=== PATIENT | female | born 1980 | race Caucasian/White ===

== ENCOUNTER 2017-12-14 13:45 | Emergency (ER) | payer SELFPAY ==
[2017-12-14] MEDS ORDERED: IPRATROPIUM/ALBUTEROL 0.5-2.5 MG/3 ML AMPUL NEB ONE (15:01)
[2017-12-14] MEDS ORDERED: PREDNISONE 20 MG TABLET PO ONE (15:01)
--- NOTE | 2017-12-14 15:03 | ER Document Report ---
HPI - HPI Patient complains to provider of: Cough Onset: Other - 9 days Onset/Duration: Persistent Quality of pain: Achy Pain Level: 4 Context: Patient presents complaining of cough for the past 9 days. Patient does report low-grade fever at home. Cough has been nonproductive but she will cough until she vomits. Patient reports a heaviness in the chest but only has this discomfort when she is coughing. Patient presently denies any chest discomfort. No recent travel, bedrest remobilization. Associated Symptoms: Chest pain - With coughing, Nonproductive cough, Vomiting. denies: Fever, Headache Exacerbated by: Coughing Relieved by: Remaining still Similar symptoms previously: No Recently seen / treated by doctor: No - ROS ROS below otherwise negative: Yes Systems Reviewed and Negative: Yes All other systems reviewed and negative - CONSTITUTIONAL Constitutional: DENIES: Fever - EENT EENT: DENIES: Sore Throat - CARDIOVASCULAR Cardiovascular: REPORTS: Chest pain - With coughing - RESPIRATORY Respiratory: REPORTS: Coughing. 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 IN LAST 30 DAYS: No - HEENT HEENT: Atraumatic, Normal ENT Exam, Normocephalic - NECK Neck: Normal Inspection, Supple. negative: Lymphadenopathy-Left, Lymphadenopathy-Right - RESPIRATORY Respiratory: No Respiratory Distress, Wheezing. negative: Chest Non-Tender - Anterior chest wall tenderness with coughing only - CARDIOVASCULAR Cardiovascular: Regular Rate, Regular Rhythm, No Murmur - BACK Back: Normal Inspection. negative: CVA Tenderness-Right, CVA Tenderness-Left - MUSCULOSKELETAL/EXTREMETIES Musculoskeletal/Extremeties: MAEW - NEURO Level of Consciousness: Awake, Alert, Appropriate Motor/Sensory: No Motor Deficit, No Sensory Deficit - DERM Integumentary: Warm, Dry, No Rash Course - Re-evaluation Re-evalutation: 12/14/17 15:56 Respirations unlabored, patient nontoxic in appearance. EKG reviewed, chest x- ray without any findings worrisome for pneumonia. Patient with increased air movement bilaterally and decreased wheezing. Patient encouraged to continue to refrain from smoking. The patient has atypical chest pain as the patient's chest pain is not suggestive of pulmonary embolus, cardiac ischemia, aortic dissection, or other serious etiology. Given the extremely low risk of these diagnoses for the test in evaluation for these possibilities does not appear to be indicated at this time. Patient has been instructed to return if the symptoms worsen or change in any way. - Vital Signs Vital signs: Temp Pulse Resp BP Pulse Ox 99.1 F 96 18 116/75 96 12/14/17 14:13 12/14/17 14:13 12/14/17 14:13 12/14/17 14:13 12/14/17 14:13 - Diagnostic Test Radiology reviewed: Reports reviewed - EKG Interpretation by Me EKG shows normal: Sinus rhythm Rate: Normal Discharge - Discharge Clinical Impression: Bronchitis, Wheezing Condition: Stable Disposition: HOME, SELF-CARE Instructions: Bronchitis With Bronchospasm (Wheezing) (OM), Inhaled Bronchodilators (OM), Steroid Medication Additional Instructions: Return immediately for any new or worsening symptoms Followup with your primary care provider, call tomorrow to make a followup appointment Prescriptions: Albuterol Sulfate [Ventolin Hfa] 2 puff IH Q4HP PRN #17 gm PRN Reason: Prednisone [Deltasone 20 mg Tablet] 3 tab PO DAILY 4 Days tablet Forms: Smoking Cessation Education, Return to Work Referrals: [facility] [Provider Group] - Follow up as needed [facility] [Provider Group] - Follow up as needed
--- NOTE | 2017-12-14 15:40 | RADIOLOGY REPORT (SQ) ---
EXAM DESCRIPTION: CHEST 2 VIEWS COMPLETED DATE/TIME: 12/14/2017 3:19 pm REASON FOR STUDY: cough COMPARISON: None. EXAM PARAMETERS: NUMBER OF VIEWS: two views TECHNIQUE: Digital Frontal and Lateral radiographic views of the chest acquired. RADIATION DOSE: NA LIMITATIONS: none FINDINGS: LUNGS AND PLEURA: No opacities, masses or pneumothorax. No pleural effusion. MEDIASTINUM AND HILAR STRUCTURES: No masses or contour abnormalities. HEART AND VASCULAR STRUCTURES: Heart normal size. No evidence for failure. BONES: No acute findings. HARDWARE: None in the chest. OTHER: No other significant finding. IMPRESSION: NO ACUTE RADIOGRAPHIC FINDING IN THE CHEST. TECHNICAL DOCUMENTATION: JOB ID: [id number] [employer]- All Rights Reserved Reading location - IP/workstation name: [email or web address]
[2017-12-14 16:39] VITALS: BP 107/66
--- NOTE | 2017-12-15 07:53 | EKG REPORT ---
SEVERITY:- NORMAL ECG - SINUS RHYTHM : Confirmed by: Penelope Cunha MD 15-Dec-2017 07:52:43
== END 2017-12-14 16:38 | disposition home or self-care (01) ==
LOC: ER 13:45
DX: J40 Bronchitis, not specified as acute or chronic (principal); R06.2 Wheezing; R05 Cough; R50.9 Fever, unspecified; R11.10 Vomiting, unspecified; R07.9 Chest pain, unspecified; F17.200 Nicotine dependence, unspecified, uncomplicated
CPT/HCPCS: 93005; 94640; 99284; 71046; 93010; J7512; J7620

== ENCOUNTER 2018-06-14 11:26 | Emergency (ER) | payer OTHER ==
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
--- NOTE | 2018-06-14 15:03 | RADIOLOGY REPORT (SQ) ---
EXAM DESCRIPTION: CT CERVICAL SPINE WITHOUT COMPLETED DATE/TIME: 06/14/2018 2:41 pm REASON FOR STUDY: pain injury numbness to 1 and 2 finger right arm pain and numbness COMPARISON: None. TECHNIQUE: Axial images acquired through the cervical spine without intravenous contrast. Images re viewed with lung, soft tissue and bone windows. Reconstructed coronal and sagittal MPR images review ed. Images stored on PACS. All CT scanners at this facility use dose modulation, iterative reconstruction, and/or weight based d osing when appropriate to reduce radiation dose to as low as reasonably achievable (ALARA). [facility]: Dose Right [facility]: CareDose [facility]: Dose Right [facility]: Teradose 4D [facility]: Infogram RADIATION DOSE: CT Rad equipment meets quality standard of care and radiation dose reduction techniq ues were employed. CTDIvol: 18.2 mGy. DLP: 341 mGy-cm. mGy. LIMITATIONS: None. FINDINGS: ALIGNMENT: Anatomic. MINERALIZATION: Normal. VERTEBRAL BODIES: No fractures or dislocation. DISCS: Old discectomy with fusion at C6-7, with incorporated bone graft material and anterior fixatio n plate. There is minimal right paracentral bony spurring without significant central or foraminal s tenosis. FACETS, LATERAL MASSES, POSTERIOR ELEMENTS: No fractures. No dislocation. No acute findings. HARDWARE: None in the spine. VISUALIZED RIBS: No fractures. LUNG APICES AND SOFT TISSUES: No significant or acute findings. OTHER: No other significant finding. IMPRESSION: Old postsurgical changes at C6-7. No significant central or foraminal encroachment at t his level. No acute fracture or malalignment. TECHNICAL DOCUMENTATION: JOB ID: [id number] Quality ID # [id number]: Final reports with documentation of one or more dose reduction techniques (e.g., Au tomated exposure control, adjustment of the mA and/or kV according to patient size, use of iterative reconstruction technique) 2010 [employer]- All Rights Reserved Reading location - IP/workstation name: [email or web address]
--- NOTE | 2018-06-14 15:04 | RADIOLOGY REPORT (SQ) ---
EXAM DESCRIPTION: SHOULDER RIGHT 2 OR MORE VIEWS COMPLETED DATE/TIME: 06/14/2018 2:50 pm REASON FOR STUDY: pain injury numbness to 1 and 2 finger injury pain, right shoulder pain COMPARISON: None. NUMBER OF VIEWS: Three views. TECHNIQUE: Internal rotation, external rotation, and Y view images acquired of the right shoulder. LIMITATIONS: None. FINDINGS: MINERALIZATION: Normal. BONES: No acute fracture or dislocation. No worrisome bone lesions. JOINTS: No glenohumeral dislocation. No widening at the acromioclavicular joint VISUALIZED LUNGS AND RIBS: No pneumothorax. No rib fracture. SOFT TISSUES: No radiopaque foreign body. OTHER: No other significant finding. IMPRESSION: NEGATIVE STUDY OF THE RIGHT SHOULDER. NO RADIOGRAPHIC EVIDENCE OF ACUTE INJURY. TECHNICAL DOCUMENTATION: JOB ID: [id number] [employer]- All Rights Reserved Reading location - IP/workstation name: [email or web address]
[2018-06-14] MEDS ORDERED: LORAZEPAM 0.5 MG TABLET PO ONE (16:57)
--- NOTE | 2018-06-14 19:48 | RADIOLOGY REPORT (SQ) ---
EXAM DESCRIPTION: MRI CERVICAL SPINE WITHOUT COMPLETED DATE/TIME: 06/14/2018 7:31 pm REASON FOR STUDY: pain cervical spine earlier now weakness right COMPARISON: CT 06/14/2018 TECHNIQUE: Sagittal and Axial imaging includes T1, T2, STIR and gradient echo sequences. LIMITATIONS: None. FINDINGS: ALIGNMENT: Normal. VERTEBRAE: Intact. BONE MARROW: Normal. No marrow replacement or reactive changes. DISCS: Normal. No significant abnormal signal or loss of height. HARDWARE: There is anterior hardware at C5-6 with screws into the vertebral bodies. CORD AND BASE OF BRAIN: Normal in size and signal intensity. SOFT TISSUES: No soft tissue masses. C1-C2: No significant spinal stenosis. C2-C3: No significant spinal stenosis or exit foraminal stenosis. C3-C4: No significant spinal stenosis or exit foraminal stenosis. C4-C5: No significant spinal stenosis or exit foraminal stenosis. C5-C6: No significant spinal stenosis or exit foraminal stenosis. C6-C7: Right paracentral disc/ osteophyte complex that mildly deforms the spinal cord on the right. See image 108 series 7. There is no foraminal stenosis. C7-T1: No significant spinal stenosis or exit foraminal stenosis. UPPER THORACIC: Incompletely imaged. No significant spinal stenosis or exit foraminal stenosis. OTHER: No other significant finding. IMPRESSION: Right paracentral disc/ osteophyte complex at C6-7 that slightly deforms the spinal cord . TECHNICAL DOCUMENTATION: JOB ID: [id number] [employer]- All Rights Reserved Reading location - IP/workstation name: [email or web address]
[2018-06-14 21:09] VITALS: BP 116/82
== END 2018-06-14 21:09 | disposition home or self-care (01) ==
LOC: ER 11:26
DX: S16.1XXA Strain of muscle, fascia and tendon at neck level, initial encounter (principal); X50.9XXA Other and unspecified overexertion or strenuous movements or postures, initial encounter; Y93.F2 Activity, caregiving, lifting; Y92.129 Unspecified place in nursing home as the place of occurrence of the external cause; Y99.0 Civilian activity done for income or pay; F17.210 Nicotine dependence, cigarettes, uncomplicated
CPT/HCPCS: 72125; 72141; 99284

== ENCOUNTER → 2019-04-20 | Outpatient (CLI) | payer OTHER ==
--- NOTE | 2019-04-20 08:47 | WOMENS IMAGING REPORT ---
EXAM DESCRIPTION: BILAT SCREENING MAMMO W/CAD COMPLETED DATE/TIME: 04/20/2019 8:26 am REASON FOR STUDY: Z12.31 SCREENING MAMMO Z12.31 ENCNTR SCREEN MAMMOGRAM FOR MALIGNANT NEOPLASM OF B RE COMPARISON: None. EXAM PARAMETERS: Standard craniocaudal and mediolateral oblique views of each breast recorded using digital acquisition. Read with the assistance of CAD. .[facility] - [employer] Version 9.2 LIMITATIONS: None. FINDINGS: No suspicious masses, suspicious calcifications or architectural distortion. No areas of c oncern. IMPRESSION: Negative MAMMOGRAM. BIRADS 1 BREAST DENSITY: c. The breasts are heterogeneously dense, which may obscure small masses. BIRAD: ASSESSMENT: 1 NEGATIVE RECOMMENDATION: ROUTINE SCREENING COMMENT: The patient has been notified of the results by letter per MQSA requirements. Additional no tification policies are in place for contacting patient with suspicious or incomplete findings. Quality ID #225: The [employer] recommends an annual screening mammogram for women aged 40 years or over. This facility utilizes a reminder system to ensure that all patients receive reminder letters, and/or direct phone calls for appointments. This includes reminders for routine scr eening mammograms, diagnostic mammograms, or other Breast Imaging Interventions when appropriate. Th is patient will be placed in the appropriate reminder system. TECHNICAL DOCUMENTATION: FINDING NUMBER: (1) ASSESSMENT: (1) JOB ID: [id number] [employer]- All Rights Reserved Reading location - IP/workstation name: [email or web address]
== END ==
LOC: WI 07:35
PROVIDERS: ATTEND Family Medicine
DX: Z12.31 Encounter for screening mammogram for malignant neoplasm of breast (principal)
CPT/HCPCS: 77067

== ENCOUNTER 2019-06-26 11:53 | Emergency (ER) | payer OTHER ==
--- NOTE | 2019-06-26 12:12 | ER Document Report ---
ED Medical Screen (RME) - General Chief Complaint: Numbness Stated Complaint: LEFT SIDE NUMBNESS/WEAKNESS/CHILLS Time Seen by Provider: 06/26/19 12:08 Primary Care Provider: MELISSA CASTILLO DO [Primary Care Provider] - Follow up as needed Mode of Arrival: Ambulatory Information source: Patient Notes: 39-year-old female presented to ED for complaint of numbness to both feet with cold tingling sensation both arms both hands and upper left side. 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 Patient is alert oriented respirations regular and unlabored speaking in full sentences. She is able to walk with a even steady gait. States she is not having any pain at this time. I have greeted and performed a rapid initial assessment of this patient. A comprehensive ED assessment and evaluation of the patient, analysis of test results and completion of medical decision making process will be conducted by an additional ED providers. TRAVEL OUTSIDE OF THE [place] IN LAST 30 DAYS: No - Related Data Allergies/Adverse Reactions: No Known Allergies Allergy (Verified 06/14/18 11:27) Past Medical History - General Information source: Patient - Social History Cigarette use (# per day): Yes - 1/2 to 3/4 pack/day Frequency of alcohol use: None Drug Abuse: None Lives with: Friend - Medical History Medical History: Negative - Past Medical History Cardiac Medical History: Reports: None Pulmonary Medical History: Reports: None EENT Medical History: Reports: None Neurological Medical History: Reports: None Endocrine Medical History: Reports: None Renal/ Medical History: Reports: None Malignancy Medical History: Reports: None GI Medical History: Reports: None Musculoskeltal Medical History: Reports Hx Musculoskeletal Trauma, Reports 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 Psychiatric Medical History: Reports: Hx Attention Deficit Hyperactivity Disorder, Other - Insomnia Traumatic Medical History: Reports: Hx Spine Fracture - c 6 c7 Infectious Medical History: Reports: None Past Surgical History: Reports: Hx Gynecologic Surgery - uterine ablation, Hx Orthopedic Surgery - Corpectomy metal cage and screws to C6-7, Hx Tubal Ligation - Immunizations Immunizations up to date: Yes Physical Exam - Vital signs Vitals: Temp Pulse Resp BP Pulse Ox 97.8 F 88 16 110/88 H 98 06/26/19 11:57 06/26/19 11:57 06/26/19 11:57 06/26/19 11:57 06/26/19 11:57 Course - Vital Signs Vital signs: Temp Pulse Resp BP Pulse Ox 97.8 F 88 16 110/88 H 98 06/26/19 11:57 06/26/19 11:57 06/26/19 11:57 06/26/19 11:57 06/26/19 11:57 Doctor's Discharge - Discharge Referrals: MELISSA CASTILLO DO [Primary Care Provider] - Follow up as needed
--- NOTE | 2019-06-26 12:36 | RADIOLOGY REPORT (SQ) ---
EXAM DESCRIPTION: CERV SP 4 OR 5 VIEWS COMPLETED DATE/TIME: 06/26/2019 12:28 pm REASON FOR STUDY: numbness hands and feet COMPARISON: None. NUMBER OF VIEWS: Five views. TECHNIQUE: AP, lateral, obliques and odontoid radiographic images acquired of the cervical spine. LIMITATIONS: None. FINDINGS: MINERALIZATION: Normal. ALIGNMENT: Anatomic. VERTEBRAE: Vertebral bodies of normal height. DISCS: There is a disc implant at C6-7. Marginal osteophytes is seen at C5-6. FORAMINA: No osteophytes or foraminal narrowing. LATERAL AND POSTERIOR ELEMENTS: Facets, lateral masses and spinous processes without significant find ings. HARDWARE: There is anterior hardware at C6-7 with screw into each vertebral body and with a disc impl ant. SOFT TISSUES: No masses or calcifications. Lung apices clear. OTHER: No other significant finding. IMPRESSION: Surgical changes. Mild spondylosis. No acute finding. TECHNICAL DOCUMENTATION: JOB ID: [id number] [employer]- All Rights Reserved Reading location - IP/workstation name: [email or web address]
--- NOTE | 2019-06-26 15:12 | ER Document Report ---
ED Neuro Symptoms/Deficit - General Chief Complaint: Numbness Stated Complaint: LEFT SIDE NUMBNESS/WEAKNESS/CHILLS Time Seen by Provider: 06/26/19 12:08 Primary Care Provider: MELISSA CASTILLO DO [Primary Care Provider] - Follow up as needed Mode of Arrival: Ambulatory Notes: CHIEF COMPLAINT: Numbness in extremities HPI: 39-year-old female who is otherwise healthy presenting to the emergency department complaining of progressive numbness and tingling in both the upper and lower extremities over the last 3 to 4 days. States it started in the left foot and left hand then became bilateral. Has not had fever or recent illness. Denies headache. Denies visual change. Denies neck pain. Denies chest pain shortness of breath. Denies abdominal pain. Denies incontinence of urine or bowel. Patient states that she follows with Dr. Christie in [place] because of a brachial plexus injury she had last year but symptoms of that had resolved completely. Patient states she is not dropping items when she is holding things. She states that movement of the head and neck do not change the character of her symptoms. She has not called her neurologist to discuss these new symptoms. ROS: See HPI - all other systems were reviewed and are otherwise negative Constitutional: no fever Eyes: no drainage, no blurred vision ENT: no runny nose, no sore throat Cardiovascular: no chest pain Resp: no SOB, no cough GI: no vomiting, no diarrhea : no dysuria Integumentary: no rash Allergy: no hives Musculoskeletal: no extremity pain or swelling Neurological: + numbness/tingling, + weakness MEDICATIONS: I agree with the patient medications as charted by the RN. ALLERGIES: I agree with the allergies as charted by the RN. PAST MEDICAL HISTORY/PAST SURGICAL HISTORY: Reviewed and agree as charted by RN. SOCIAL HISTORY: Reviewed and agree as charted by RN. FAMILY HISTORY: No significant familial comorbid conditions directly related to patient complaint EXAM: Reviewed vital signs as charted by RN. CONSTITUTIONAL: Alert and oriented and responds appropriately to questions. Well-appearing; well-nourished HEAD: Normocephalic; atraumatic EYES: PERRL; Conjunctivae clear, sclerae non-icteric ENT: normal nose; no rhinorrhea; moist mucous membranes; pharynx without lesions noted NECK: Supple without meningismus; non-tender; no cervical lymphadenopathy, no masses CARD: RRR; no murmurs, no clicks, no rubs, no gallops; symmetric distal pulses RESP: Normal chest excursion without splinting or tachypnea; breath sounds clear and equal bilaterally; no wheezes, no rhonchi, no rales, pulse oximetry ABD/GI: Normal bowel sounds; non-distended; soft, non-tender, no rebound, no guarding; no palpable organomegaly or masses. BACK: The back appears normal and is non-tender to palpation, there is no CVA tenderness EXT: Normal ROM in all joints; non-tender to palpation; no cyanosis, no effusions, no edema SKIN: Normal color for age and race; warm; dry; good turgor; no acute lesions noted NEURO: Moves all extremities equally; Motor and sensory function intact. Face symmetric. Tongue protrudes midline. Extraocular motions intact. Pupils are 3 mm and equally reactive. Normal speech. 5 out of 5 strength in both the distal and proximal upper and lower extremities bilaterally. Sensation is grossly intact throughout except for a reported burning sensation on the left lateral thigh, left volar and dorsal forearm relative to the right forearm. Finger to nose testing normal. Pronator drift normal. DTRs intact 2+ equal bilateral upper and lower extremities. PSYCH: The patient's mood and manner are appropriate. Grooming and personal hygiene are appropriate. MDM: 39-year-old female presenting with 3 to 4 days of what she considers to be progressive numbness tingling in all extremities. She has no unilateral symptoms at this time. Her strength exam is completely intact and equal. She only reports some subjective decrease in sensation in the lateral left thigh, lateral forearm. Low suspicion for acute CVA she has no unilateral facial symptoms, no headache. Has not had fever or recent illness. No incontinence. Discussed with attending Dr. Crabtree, will obtain basic screening labs and electrolytes. Patient may benefit from a course of steroids and follow-up with her neurologist Dr. Christie if lab work does not show acute findings TRAVEL OUTSIDE OF THE [place] IN LAST 30 DAYS: No - Related Data Allergies/Adverse Reactions: No Known Allergies Allergy (Verified 06/26/19 12:09) Past Medical History - General Information source: Patient - Social History Smoking Status: Current Every Day Smoker Cigarette use (# per day): Yes - 1/2 to 3/4 pack/day Frequency of alcohol use: None Drug Abuse: None Lives with: Friend Family History: Reviewed & Not Pertinent Patient has suicidal ideation: No Patient has homicidal ideation: No - Medical History Medical History: Negative - Past Medical History Cardiac Medical History: Reports: None Pulmonary Medical History: Reports: None EENT Medical History: Reports: None Neurological Medical History: Reports: None Endocrine Medical History: Reports: None Renal/ Medical History: Reports: None Malignancy Medical History: Reports: None GI Medical History: Reports: None Musculoskeletal Medical History: Reports Hx Musculoskeletal Trauma, Reports 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 Psychiatric Medical History: Reports: Hx Attention Deficit Hyperactivity Disorder, Other - Insomnia Traumatic Medical History: Reports: Hx Spine Fracture - c 6 c7 Infectious Medical History: Reports: None Past Surgical History: Reports: Hx Gynecologic Surgery - uterine ablation, Hx Orthopedic Surgery - Corpectomy metal cage and screws to C6-7, Hx Tubal Ligation - Immunizations Immunizations up to date: Yes Physical Exam - Vital signs Vitals: Temp Pulse Resp BP Pulse Ox 97.8 F 88 16 110/88 H 98 06/26/19 11:57 06/26/19 11:57 06/26/19 11:57 06/26/19 11:57 06/26/19 11:57 Course - Re-evaluation Re-evalutation: 06/26/19 17:30 Patient in no distress at this time. She is using her extremities well, able to dress herself, able to walk without difficulty. I discussed evaluation results with her at length. I had discussed them previously with attending, lab work does not show any acute abnormalities. Will start patient on a course of steroids for the radicular type symptoms. She has a primary care provider in [place] [facility] that she can call tomorrow for close follow-up. We will also refer patient to neurology as she does not have a local neurologist for follow-up and that is her request. We discussed strict return precautions - Vital Signs Vital signs: Temp Pulse Resp BP Pulse Ox 97.8 F 88 14 104/79 97 06/26/19 11:57 06/26/19 11:57 06/26/19 16:30 06/26/19 16:30 06/26/19 16:30 - Laboratory Result Diagrams: 06/26/19 15:47 06/26/19 15:47 Laboratory results interpreted by me: 06/26/19 06/26/19 15:47 15:47 MCH 33.5 H Carbon Dioxide 31 H Discharge - Discharge Clinical Impression: Numbness and tingling Condition: Stable Disposition: HOME, SELF-CARE Additional Instructions: Follow-up closely with your primary care provider in neurology for further evaluation of your symptoms. Your lab work did not show definitive reason for your symptoms at this time. If your symptoms progress or worsen return for reevaluation Prescriptions: Prednisone [Deltasone 20 mg Tablet] 2 tab PO DAILY 5 Days tablet Referrals: MELISSA CASTILLO DO [Primary Care Provider] - Follow up as needed WILLARD DUARTE MD [NO LOCAL MD] - Follow up as needed
[2019-06-26 16:22] LABS: ABSOLUTE BASOPHILS # (AUTO) 0.1 10^3/uL (0.0-0.2); ABSOLUTE EOSINOPHILS # (AUTO) 0.1 10^3/uL (0.0-0.6); ABSOLUTE LYMPHOCYTES (AUTO) 2.6 10^3/uL (0.5-4.7); ABSOLUTE MONOCYTES (AUTO) 0.4 10^3/uL (0.1-1.4); ABSOLUTE NEUT (AUTO) 4.2 10^3/uL (1.7-8.2); BASOPHILS % (AUTO) 1.1 % (0-2); EOSINOPHILS % (AUTO) 1.8 % (0-6); HEMATOCRIT 42.2 % (36.0-47.0); HEMOGLOBIN 14.5 g/dL (12.0-15.5); LYMPHOCYTES % (AUTO) 34.5 % (13-45); MEAN CORPUSCULAR HEMOGLOBIN 33.5 pg (27.0-33.4); MEAN CORPUSCULAR HGB CONC 34.5 g/dL (32.0-36.0); MEAN CORPUSCULAR VOLUME 97 fl (80-97); MONOCYTES % (AUTO) 5.9 % (3-13); PLATELET COUNT 227 10^3/uL (150-450); RED BLOOD COUNT 4.35 10^6/uL (3.72-5.28); RED CELL DISTRIBUTION WIDTH 12.8 % (11.5-14.0); SEGMENTED NEUTROPHILS % (AUTO) 56.7 % (42-78); TOTAL CELLS COUNTED % (AUTO) 100 %; WHITE BLOOD COUNT 7.4 10^3/uL (4.0-10.5)
[2019-06-26 16:39] LABS: ALKALINE PHOSPHATASE 44 U/L (38-126); ANION GAP 6 (5-19); ASPARTATE AMINO TRANSFERASE 21 U/L (14-36); BILIRUBIN,DIRECT 0.2 mg/dL (0.0-0.4); BILIRUBIN,TOTAL 0.3 mg/dL (0.2-1.3); BLOOD UREA NITROGEN 7 mg/dL (7-20); CALCIUM 9.1 mg/dL (8.4-10.2); CARBON DIOXIDE 31 mmol/L (22-30); CHLORIDE 104 mmol/L (98-107); GLUCOSE 83 mg/dL (75-110); POTASSIUM 3.9 mmol/L (3.6-5.0); TOTAL PROTEIN 7.5 g/dL (6.3-8.2)
[2019-06-26] MEDS ORDERED: PREDNISONE 20 MG TABLET PO ONE (17:29)
[2019-06-26 17:47] VITALS: BP 109/84
== END 2019-06-26 17:46 | disposition home or self-care (01) ==
LOC: ER 11:53
DX: R20.0 Anesthesia of skin (principal); R20.2 Paresthesia of skin; R53.1 Weakness; F17.210 Nicotine dependence, cigarettes, uncomplicated
CPT/HCPCS: 99284; 36415; 83735; 84443; 85025; 80053; 72050; J7512